=== PATIENT | male | born 1985 | race Caucasian/White ===

== ENCOUNTER 2023-04-22 11:19 | Emergency (ER) | payer SELFPAY ==
[2023-04-22] MEDS ORDERED: Dicyclomine 20 MG/2 ML VIAL ONE (11:31)
[2023-04-22] MEDS ORDERED: Famotidine/PF 20 mg/2ml Vial ONE (11:32)
[2023-04-22] MEDS ORDERED: Promethazine HCl 25 MG/ML VIAL ONE ×2 (11:32→23:29)
[2023-04-22] MEDS ORDERED: Ketorolac Tromethamine 30 MG (1 mL) VIAL ONE (11:32)
[2023-04-22] MEDS ORDERED: Lactated Ringer's 2,000 ML ONE (11:32)
[2023-04-22 12:07] LABS: CK (CPK) 1097 U/L (30-200)
[2023-04-22] MEDS ORDERED: Potassium Chloride 20 MEQ (100 mL) BAG ONE ×2 (12:19→20:04)
[2023-04-22] MEDS ORDERED: Morphine 10 MG/ML VIAL ONE (12:19)
[2023-04-22 12:26] LABS: Troponin I 0.063 ng/mL (< 0.028)
[2023-04-22 12:49] LABS: Magnesium 0.6 mg/dL (1.6-2.6)
[2023-04-22] MEDS ORDERED: Morphine 4 MG/ML VIAL ONE ×4 (13:19→20:03)
[2023-04-22] MEDS ORDERED: Potassium Chloride 20 MEQ TAB ONE (13:19)
[2023-04-22] MEDS ORDERED: Prochlorperazine 10 MG/2 ML VIAL ONE ×2 (13:19→20:03)
[2023-04-22] MEDS ORDERED: Magnesium 2 GM/50 ML BAG (IN WATER) ONE (13:20)
[2023-04-22] MEDS ORDERED: metroNIDAZOLE 500 MG (100 mL) BAG ONE ×2 (13:20→22:18)
[2023-04-22 13:37] LABS: Bilirubin Large (Negative); Blood, Urine Large (Negative); Glucose, Urine (Dipstick) Negative (Negative); Ketone, Urine 15 mg/dL (Negative); Leukocyte Negative (Negative); Nitrite Positive (Negative); Protein, Urine (Dipstick) > or equal to 300 mg/dL (Neg-Trace); Specific Gravity, Urine 1.025 (1.005-1.030)
[2023-04-22 13:45] LABS: Clarity Cloudy (Clear)
[2023-04-22 13:46] LABS: SARS-CoV-2 NAA Rapid Test Not Detected (NotDetected)
[2023-04-22 13:48] LABS: CAUTI Indications for Culture Pelvic or flank pain; RBC/HPF 0-3 HPF (0-3); WBC/HPF 0-3 HPF (0-3)
[2023-04-22 13:49] LABS: Bacteria/HPF Rare-Few HPF (None Seen); Mucous/LPF 1+ LPF (<2+); Squamous Epithelial 0-3 HPF (0-3); Urine Culture Reflex No No
[2023-04-22 13:54] LABS: Amphetamine Not Detected (NotDetected); Barbiturates Screen Not Detected (NotDetected); Benzodiazepine Screen Not Detected (NotDetected); Cocaine Metabolite Screen Not Detected (NotDetected); Methadone Not Detected (NotDetected); Methamphetamine Not Detected (NotDetected); Opiate Screen Detected (NotDetected); Oxycodone Screen Not Detected (NotDetected); Phencyclidine (PCP) Not Detected (NotDetected); THC/Cannabinoid Screen Detected (NotDetected); Tricyclic Screen Not Detected (NotDetected)
[2023-04-22] MEDS ORDERED: Lactated Ringer's 1,000 ML ONE ×2 (14:58→23:29)
[2023-04-22] MEDS ORDERED: Labetalol HCl 100 MG/20 ML VIAL ONE (14:58)
[2023-04-22] MEDS ORDERED: LevoFLOXacin 750 mg/D5W 150 ml Premix Bag ONE (15:34)
[2023-04-22 16:37] LABS: Troponin I 0.087 ng/mL (< 0.028)
[2023-04-22 19:27] LABS: #Lymphocytes 1.4 thou/uL (1.20-3.40); #Monocytes 1.3 thou/uL (0.11-0.59); #Neutrophils 16.4 thou/uL (1.40-6.50); %Basophils 0.2 % (0.0-1.0); %Lymphocytes 7.3 % (21.0-51.0); %Monocytes 6.6 % (0.0-10.0); %Neutrophils 85.9 % (42.0-75.0); Hematocrit 49.1 % (42.0-52.0); Hemoglobin 16.9 g/dL (14.0-18.0); Mean Corpuscular HGB CONC 34.4 g/dL (32.0-36.0); Mean Corpuscular Hemoglobin 33.2 pg (27.0-31.0); Mean Corpuscular Volume 96.5 fl (78.0-98.0); Mean Platelet Volume 9.1 fL (7.4-10.4); Platelet Count 189 10x3/uL (130-400); RBC Distribution Width 12.9 % (11.5-14.5); Red Blood Cell (RBC) Count 5.09 mill/uL (4.70-6.10); White Blood Cell (WBC) Count 19.1 10x3/uL (4.8-10.8)
[2023-04-22 19:38] LABS: ALT (SGPT) 64 U/L (8-55); AST (SGOT) 65 U/L (5-34); Albumin 4.2 g/dL (3.5-5.0); Alkaline Phosphatase 83 U/L (40-110); Anion Gap 17 mmol/L (10-20); BUN (Urea Nitrogen) 24 mg/dL (8.9-20.6); CK (CPK) 1300 U/L (30-200); Calc. Creatinine Clearance 0 mL/min (70-130); Calcium 8.7 mg/dL (7.8-10.44); Carbon Dioxide 22 mmol/L (22-29); Chloride 101 mmol/L (98-107); Estimated GFR 88; Globulin 2.6 g/dL (2.4-3.5); Glucose 111 mg/dL (70-105); Magnesium 1.6 mg/dL (1.6-2.6); Potassium 3.4 mmol/L (3.5-5.1); Protein, Total 6.8 g/dL (6.0-8.3); Sodium 137 mmol/L (136-145)
[2023-04-22 19:39] LABS: Troponin I 0.082 ng/mL (< 0.028)
[2023-04-22] MEDS ORDERED: hydrALAZINE 20 MG/ML VIAL ONE (20:03)
[2023-04-22] MEDS ORDERED: HYDROmorphone 0.5 MG/0.5 ML SYRINGE ONE (21:56)
[2023-04-23] MEDS ORDERED: HYDROmorphone 0.5 MG/0.5 ML SYRINGE ONE ×4 (01:53→07:40)
[2023-04-23] MEDS ORDERED: Lactated Ringer's 2,000 ML ONE (04:41)
[2023-04-23] MEDS ORDERED: metroNIDAZOLE 500 MG (100 mL) BAG ONE (06:15)
[2023-04-23] MEDS ORDERED: Prochlorperazine 10 MG/2 ML VIAL ONE (06:22)
[2023-04-23 07:29] LABS: Hematocrit 46.4 % (42.0-52.0); Hemoglobin 15.2 g/dL (14.0-18.0); Mean Corpuscular HGB CONC 32.8 g/dL (32.0-36.0); Mean Corpuscular Hemoglobin 32.7 pg (27.0-31.0); Mean Corpuscular Volume 99.7 fl (78.0-98.0); Mean Platelet Volume 10.1 fL (7.4-10.4); Platelet Count 170 10x3/uL (130-400); RBC Distribution Width 13.6 % (11.5-14.5); Red Blood Cell (RBC) Count 4.65 mill/uL (4.70-6.10); White Blood Cell (WBC) Count 16.3 10x3/uL (4.8-10.8)
[2023-04-23 07:30] LABS: #Basophils 0.1 thou/uL (0.0-0.2); #Lymphocytes 1.8 thou/uL (1.20-3.40); #Monocytes 0.9 thou/uL (0.11-0.59); #Neutrophils 13.4 thou/uL (1.40-6.50); %Basophils 0.6 % (0.0-1.0); %Eosinophils 0.3 % (0.0-10.0); %Lymphocytes 11.3 % (21.0-51.0); %Monocytes 5.8 % (0.0-10.0)
[2023-04-23 07:32] LABS: ALT (SGPT) 53 U/L (8-55); AST (SGOT) 66 U/L (5-34); Albumin 3.7 g/dL (3.5-5.0); Alkaline Phosphatase 68 U/L (40-110); Anion Gap 13 mmol/L (10-20); BUN (Urea Nitrogen) 16 mg/dL (8.9-20.6); Bilirubin, Total 2.5 mg/dL (0.2-1.2); CK (CPK) 1325 U/L (30-200); Calc. Creatinine Clearance 0 mL/min (70-130); Calcium 8.3 mg/dL (7.8-10.44); Carbon Dioxide 25 mmol/L (22-29); Chloride 104 mmol/L (98-107); Estimated GFR 116; Globulin 2.1 g/dL (2.4-3.5); Glucose 87 mg/dL (70-105); Magnesium 1.4 mg/dL (1.6-2.6); Potassium 3.7 mmol/L (3.5-5.1); Protein, Total 5.8 g/dL (6.0-8.3); Sodium 138 mmol/L (136-145)
[2023-04-23] MEDS ORDERED: Magnesium 2 GM/50 ML BAG (IN WATER) ONE (08:08)
== END 2023-04-23 08:50 | disposition short-term general hospital (02) ==
LOC: MERGE 11:19 → MADERS 11:19
DX: K85.90 Acute pancreatitis without necrosis or infection, unspecified (principal); K81.0 Acute cholecystitis; N17.9 Acute kidney failure, unspecified; R79.89 Other specified abnormal findings of blood chemistry; E80.7 Disorder of bilirubin metabolism, unspecified; I16.0 Hypertensive urgency; E87.6 Hypokalemia; E83.42 Hypomagnesemia; M62.82 Rhabdomyolysis; A41.9 Sepsis, unspecified organism; R74.01 Elevation of levels of liver transaminase levels; I10 Essential (primary) hypertension; F17.210 Nicotine dependence, cigarettes, uncomplicated
CPT/HCPCS: 76705; 80053; 80306; 81001; 82550; 83735; 84478; 84484; 85025; 93005; 96361; 96365; 96366; 96367; 96372; 96375; 96376; J0360; J0780; J1170; J1885; J1956; J2270; J2550; J3475; J3480; J7120; S0028